=== PATIENT | female | born 1990 ===

== ENCOUNTER 2022-07-24 06:53 | Inpatient (IN) ==
[2022-07-24] MEDS ORDERED: MEPERIDINE 25 MG/1 ML VIAL IV PRN (09:41)
[2022-07-24] MEDS ORDERED: TRANEXAMIC ACID 1,000 MG in SODIUM CHLORIDE 0.9% 100 ML IV PRN (09:41)
[2022-07-24] MEDS ORDERED: CARBOPROST TROMETHAMINE 250 MCG/ML AMP IM PRN (09:41)
[2022-07-24] MEDS ORDERED: METHYLERGONOVINE 0.2 MG/1 ML AMP IM PRN (09:41)
[2022-07-24] MEDS ORDERED: ONDANSETRON 4 MG/2 ML VIAL IV PRN (09:41)
[2022-07-24] MEDS ORDERED: BUTORPHANOL 1 MG/ML VIAL IV PRN (09:41)
[2022-07-24] MEDS ORDERED: BUTORPHANOL 2 MG/ML VIAL IV PRN (09:41)
[2022-07-24] MEDS ORDERED: ACETAMINOPHEN 500 MG TABLET PO PRN (09:41)
[2022-07-24] MEDS ORDERED: OXYTOCIN/LR 20 UNIT/1,000 ML BAG IV ONE (09:41)
[2022-07-24] MEDS ORDERED: miSOPROStoL 200 MCG TABLET RECTAL PRN (09:41)
[2022-07-24] MEDS ORDERED: LACTATED RINGERS 1,000 ML IV SCH (10:00)
[2022-07-24 10:12] LABS: Basophils % 0.1 % (0.0-0.8); Eosinophils # 0.1 10*3/uL (0.0-0.87); Hematocrit 36.1 VOL% (35.7-47.0); Hemoglobin 11.8 GM/DL (12.0-16.0); Immature Granulocytes % 0.3 %; Immature Granulocytes Absolute 0.02 #; Lymphocytes # 1.7 10*3/uL (1.4-4.0); Lymphocytes % 23.5 % (21.3-54.2); Mean Corpuscular HGB Conc 32.7 GM/DL (32-36); Mean Corpuscular Volume 86.4 FL (87-102); Mean Platelet Volume 8.2 FL (9.6-12.0); Monocytes # 0.4 10*3/uL (0.11-0.8); Monocytes % 5.4 % (1.7-12.7); Neutrophils % 69.7 % (38.7-73.9); Platelet Count 191 T/CUMM (130-400); Red Blood Count 4.18 MC/CUMM (3.8-5.5); Red Cell Distribution Width 13.5 % (9.3-17.3); White Blood Count 7.18 T/CUMM (4-12)
[2022-07-24 10:26] LABS: INR 0.8; PT Patient Result 9.4 SECS (10.1-12.1); Partial Thromboplastin Time 22.5 SECS (23.7-32.9)
[2022-07-24 10:32] LABS: Alanine Aminotransferase 13 U/L (13-56); Albumin 2.5 G/DL (3.4-5.0); Alkaline Phosphatase 124 U/L (45-117); Aspartate Amino Transferase 15 U/L (0-37); Bilirubin,Total < 0.39 MG/DL (0.20-1.00); Blood Urea Nitrogen 7 MG/DL (7-18); Calcium 8.9 MG/DL (8.5-10.1); Carbon Dioxide 21 MMOL/L (21-32); Chloride 110 MMOL/L (98-107); Glucose 79 MG/DL (74-106); Osmolality,Calculated 273.5 MOS/KG (273-304); Potassium 4.1 MMOL/L (3.5-5.1); Sodium 139 MMOL/L (136-145); Total Protein 6.7 G/DL (6.4-8.2)
[2022-07-24 11:02] LABS: Bilirubin,Direct < 0.100 MG/DL (0.0-0.20)
[2022-07-24] MEDS ORDERED: OXYTOCIN/LR 20 UNIT/1,000 ML BAG IV SCH (14:00)
[2022-07-25] MEDS ORDERED: FAMOTIDINE 20 MG/2 ML VIAL IV ONE (09:01)
[2022-07-25] MEDS ORDERED: PROMETHAZINE 25 MG/1 ML VIAL IM ONE (09:01)
[2022-07-25] MEDS ORDERED: LACTATED RINGERS 1,000 ML IV ONE (09:01)
[2022-07-25] MEDS ORDERED: CITRIC ACID/SODIUM CITRATE 30 ML UDCUP PO ONE (09:01)
[2022-07-25] MEDS ORDERED: hydrOXYzine HCL 25 MG/1 ML VIAL IM PRN (09:01)
[2022-07-25] MEDS ORDERED: diphenhydrAMINE 50 MG/1 ML VIAL IV PRN ×2 (09:01)
[2022-07-25] MEDS ORDERED: ePHEDrine 50 MG/ML VIAL IV PRN (09:01)
[2022-07-25] MEDS ORDERED: fentaNYL 2 MCG/ROPIV 0.2% EPID 100 ML EPIDURAL SCH (09:30)
[2022-07-25] MEDS: MEPERIDINE 50 MG/1 ML VIAL IV PRN ×2 (12:01→14:23)
[2022-07-25] MEDS ORDERED: hydrALAZINE 20 MG/1 ML VIAL IV ONE (12:18)
[2022-07-25] MEDS ORDERED: ROPIVACAINE 0.5% 30 ML VIAL ONE (12:20)
[2022-07-25] MEDS ORDERED: fentaNYL 100 MCG/2 ML VIAL ONE (12:20)
[2022-07-25 12:47] LABS: Bacteria,Urine Occasional /HPF (Few); Mucus,Urine Occasional /LPF (Occasional); RBC,Urine <1 /HPF (0-4)
[2022-07-25 12:51] LABS: Urine Appearance Clear (Clear); Urine Color Yellow (Yellow); Urine pH 6.5 (4.5-8.0)
[2022-07-25 12:52] LABS: Bilirubin,Urine Negative (Negative); Blood, Urine Negative (Negative); Glucose,Urine (UA) Negative (Negative); Ketones,Urine Negative (Negative); Nitrite,Urine Negative (Negative); Protein,Urine Negative (Negative); Urine Urobilinogen 0.2 eU/dL (<2.0)
[2022-07-25] MEDS ORDERED: miSOPROStoL 200 MCG TABLET ONE (15:15)
[2022-07-25] MEDS ORDERED: OXYTOCIN/LR 0 UNIT/0 ML BAG IV ONE (15:15)
[2022-07-25] MEDS ORDERED: CARBOPROST TROMETHAMINE 250 MCG/ML AMP IM ONE (15:15)
[2022-07-25] MEDS ORDERED: METHYLERGONOVINE 0.2 MG/1 ML AMP ONE (15:15)
[2022-07-25] MEDS ORDERED: TRANEXAMIC ACID 1,000 MG/10 ML VIAL ONE (15:15)
[2022-07-25] MEDS ORDERED: SODIUM CHLORIDE 0.9% 0 ML IV ONE (15:15)
[2022-07-25 16:18] LABS: Cord Venous Blood HCO3 18.8 MMOL/L; Cord Venous Blood PCO2 45.6 MMHG; Cord Venous Blood PO2 34.9
[2022-07-25] MEDS ORDERED: ACETAMINOPHEN 325 MG TABLET PO PRN (16:29)
[2022-07-25] MEDS ORDERED: HYDROCORTISONE 2.5% RECTAL CREAM 30 GM TUBE TOP PRN (16:29)
[2022-07-25] MEDS ORDERED: MEASLES/MUMPS/RUBELLA VACCINE 0.5 ML VIAL SUBCUT ONE (16:29)
[2022-07-25] MEDS ORDERED: oxyCODONE/ACETAMINOPHEN 5-325 MG TABLET PO PRN (16:29)
[2022-07-25] MEDS ORDERED: WITCH HAZEL PADS 100/JAR TOP PRN (16:29)
[2022-07-25] MEDS ORDERED: BISACODYL 10 MG SUPP RECTAL PRN (16:29)
[2022-07-25] MEDS ORDERED: ONDANSETRON 4 MG/2 ML VIAL IV PRN (16:29)
[2022-07-25] MEDS ORDERED: DIPH/TET/ACEL PERT BOOSTER VACCINE 0.5 ML VIAL IM ONE (16:29)
[2022-07-25] MEDS ORDERED: OXYTOCIN/LR 20 UNIT/1,000 ML BAG IV ONE (16:29)
[2022-07-25] MEDS ORDERED: RHO(D) IMMUNE GLOBULIN 300 MCG SYRINGE IM ONE (16:29)
[2022-07-25] MEDS ORDERED: BENZOCAINE 20%/MENTHOL 0.5% SPRAY 56 GM CAN TOP PRN (16:29)
[2022-07-25] MEDS ORDERED: LANOLIN 50% CREAM 0.3 OZ TUBE TOP PRN (16:29)
[2022-07-25] MEDS: DOCUSATE SODIUM 100 MG CAPSULE PO SCH (22:06)
[2022-07-25] MEDS: IBUPROFEN 800 MG TABLET PO PRN (22:08)
[2022-07-26 06:16] LABS: Basophils % 0.2 % (0.0-0.8); Eosinophils % 0.3 % (0.00-10.9); Hematocrit 31.6 VOL% (35.7-47.0); Hemoglobin 10.4 GM/DL (12.0-16.0); Immature Granulocytes % 0.6 %; Immature Granulocytes Absolute 0.07 #; Lymphocytes # 2.2 10*3/uL (1.4-4.0); Lymphocytes % 18.6 % (21.3-54.2); Mean Corpuscular HGB Conc 32.9 GM/DL (32-36); Mean Corpuscular Volume 87.5 FL (87-102); Mean Platelet Volume 8.7 FL (9.6-12.0); Monocytes # 0.6 10*3/uL (0.11-0.8); Neutrophils % 75.3 % (38.7-73.9); Platelet Count 196 T/CUMM (130-400); Red Blood Count 3.61 MC/CUMM (3.8-5.5); Red Cell Distribution Width 13.9 % (9.3-17.3)
[2022-07-26] MEDS: DOCUSATE SODIUM 100 MG CAPSULE PO SCH ×2 (10:15→20:31)
[2022-07-26] MEDS: IBUPROFEN 800 MG TABLET PO PRN (15:17)
[2022-07-26] MEDS: oxyCODONE/ACETAMINOPHEN 5-325 MG TABLET PO PRN (17:55)
[2022-07-27] MEDS: oxyCODONE/ACETAMINOPHEN 5-325 MG TABLET PO PRN (03:09)
[2022-07-27 07:29] VITALS: BP 101/52
[2022-07-27] MEDS: DOCUSATE SODIUM 100 MG CAPSULE PO SCH (09:06)
[2022-07-27] MEDS: IBUPROFEN 800 MG TABLET PO PRN (11:11)
== END 2022-07-27 13:45 | disposition home or self-care (01) | DRG 560 ==
LOC: N.LD 06:53 → N.OB 07-25 21:25
PROVIDERS: ADMIT Obstetrics & Gynecology; ATTEND Obstetrics & Gynecology